=== PATIENT | male | born 1995 | race Caucasian/White ===

== ENCOUNTER 2017-06-20 00:29 | Emergency (ER) | payer BC ==
[~2017-06-20] VITALS: Ht 170.2 cm; Wt 74.8 kg
[~2017-06-20 00:29] MED LIST: ALBU90OI; AMOX500 PO; CODACEE120 PO; FLUT.05NI; HYDACE5 PO; IBUP600 PO; PROM25 PO; Phenergan25 M1 PO; SULF10OPSA OU
[2017-06-20] MEDS ORDERED: Nortriptyline H10 MG PO (01:17)
[2017-06-20] MEDS ORDERED: SUMA25 PO (01:18)
== END 2017-06-20 02:15 | disposition home or self-care (01) ==
LOC: ER 00:29
DX: F10.129 Alcohol abuse with intoxication, unspecified (principal); G43.909 Migraine, unspecified, not intractable, without status migrainosus; F17.290 Nicotine dependence, other tobacco product, uncomplicated; Z79.899 Other long term (current) drug therapy; W22.8XXA Striking against or struck by other objects, initial encounter
CPT/HCPCS: 99283